=== PATIENT | female | born 1995 | race African-American/Black ===

== ENCOUNTER 2019-03-31 15:48 | Emergency (ER) | payer SELFPAY ==
[~2019-03-31] VITALS: Ht 160 cm; Wt 64.4 kg
[2019-03-31 16:12] VITALS: BP 148/72
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
[2019-03-31] MEDS ORDERED: ORPH100T PO (18:14)
== END 2019-03-31 16:26 | disposition home or self-care (01) ==
LOC: ER 15:48
DX: M54.2 Cervicalgia (principal); M54.5 Low back pain; G89.11 Acute pain due to trauma; G43.909 Migraine, unspecified, not intractable, without status migrainosus; Z88.0 Allergy status to penicillin; V43.42XA Person boarding or alighting a car injured in collision with other type car, initial encounter; Y92.488 Other paved roadways as the place of occurrence of the external cause; Y93.89 Activity, other specified; Y99.8 Other external cause status
CPT/HCPCS: 72131; 81025; 99284-25